=== PATIENT | male | born 1945 | race Caucasian/White ===

== ENCOUNTER 2016-11-26 17:28 | Emergency (ER) | payer MEDICARE, OTHER ==
[2016-11-26 18:08] VITALS: TEMP 98.4; O2SAT 97
[2016-11-26] MEDS ORDERED: SODIUM CHLORIDE 0.9% 1000 ML SOL IV ONE (18:24)
[2016-11-26 18:49] LABS: POTASSIUM 4.1 mMol/L (3.5-5.1)
[2016-11-26] MEDS ORDERED: SODIUM CHLORIDE 0.9% FLUSH 10 ML SOL IV PRN (18:51)
[2016-11-26 18:56] LABS: BASOPHILS % (AUTO) 1 % (0-3); EOSINOPHILS % (AUTO) 1 % (0-9); HEMATOCRIT 35 % (39-53); MEAN CORPUSCULAR HGB CONC 37.6 gm/dl (32.0-36.0); MEAN CORPUSCULAR VOLUME 97 fL (80-100); MONOCYTES % (AUTO) 6.3 % (0-12); NEUTROPHILS % (AUTO) 72.9 % (37-80)
[2016-11-26 19:05] LABS: NORMAL RBCS PRESENT
[2016-11-26 20:09] VITALS: RESP 22
[2016-11-26 20:10] VITALS: BP 128/76; PULSE 86
== END 2016-11-26 20:00 | disposition home or self-care (01) | DRG 641 ==
LOC: ED 17:28
DX: E86.0 Dehydration (principal); R40.2142 Coma scale, eyes open, spontaneous, at arrival to emergency department
CPT/HCPCS: 36415; 80048; 82962; 85025; 93005; 99285

== ENCOUNTER 2017-08-25 12:52 | Inpatient (IN) | payer MEDICARE, OTHER ==
[2017-08-25] MEDS: WARFARIN SODIUM 2 MG TAB PO SCH (18:06)
[2017-08-25] MEDS: NOVOLOG FLEXPEN SC SCH ×2 (18:55→21:06)
[2017-08-25] MEDS ORDERED: METOPROLOL TARTRATE 50 MG TAB PO SCH (21:00)
[2017-08-25] MEDS: ASPIRIN EC 81 MG PO SCH (21:04)
[2017-08-25] MEDS: ACETAMINOPHEN 325 MG PO PRN (21:05)
[2017-08-26] MEDS: ACETAMINOPHEN 325 MG PO PRN ×3 (02:17→18:23)
[2017-08-26] MEDS ORDERED: METFORMIN HYDROCHLORIDE 500 MG TAB PO SCH ×2 (08:00→18:00)
[2017-08-26] MEDS: NOVOLOG FLEXPEN SC SCH (08:38)
[2017-08-26] MEDS ORDERED: [UNRECOGNIZED DRUG - OTHER] PO SCH (09:00)
[2017-08-26] MEDS: OXYBUTYNIN CHLORIDE 5 MG TAB PO SCH (09:38)
[2017-08-26] MEDS: METFORMIN HYDROCHLORIDE 500 MG TAB PO SCH ×2 (09:39→18:23)
[2017-08-26] MEDS: FERROUS GLUCONATE 324 MG TABLET PO SCH (09:40)
[2017-08-26] MEDS: GLIMEPIRIDE 2 MG TAB PO SCH (09:41)
[2017-08-26] MEDS: METOPROLOL TARTRATE 25 MG TAB PO SCH ×2 (09:44→21:24)
[2017-08-26] MEDS: ROSUVASTATIN CALCIUM 10 MG TAB PO SCH (15:56)
[2017-08-26] MEDS: WARFARIN SODIUM 2 MG TAB PO SCH (18:24)
[2017-08-26] MEDS: ASCORBIC ACID/COPPER/LUTEIN/ 1 CAP CAP PO SCH (18:24)
[2017-08-26 19:51] VITALS: RESP 18
[2017-08-26] MEDS: ASPIRIN EC 81 MG PO SCH (21:24)
[2017-08-27] MEDS: ACETAMINOPHEN 325 MG PO PRN ×4 (00:41→21:19)
[2017-08-27] MEDS: OXYBUTYNIN CHLORIDE 5 MG TAB PO SCH (08:34)
[2017-08-27] MEDS: METFORMIN HYDROCHLORIDE 500 MG TAB PO SCH ×2 (08:35→18:25)
[2017-08-27] MEDS: METOPROLOL TARTRATE 25 MG TAB PO SCH ×2 (08:36→21:20)
[2017-08-27] MEDS: GLIMEPIRIDE 2 MG TAB PO SCH (08:37)
[2017-08-27] MEDS: ROSUVASTATIN CALCIUM 10 MG TAB PO SCH (08:39)
[2017-08-27] MEDS: FERROUS GLUCONATE 324 MG TABLET PO SCH (08:39)
[2017-08-27] MEDS ORDERED: LOPERAMIDE HYDROCHLORIDE 2 MG CAP PO ONE (16:00)
[2017-08-27] MEDS: WARFARIN SODIUM 3 MG TAB PO SCH (18:25)
[2017-08-27] MEDS: ASCORBIC ACID/COPPER/LUTEIN/ 1 CAP CAP PO SCH (18:26)
[2017-08-27] MEDS ORDERED: TEMAZEPAM 15MG 15 MG CAP PO PRN (19:20)
[2017-08-27] MEDS ORDERED: LORAZEPAM 0.5 MG TAB PO PRN (19:21)
[2017-08-27] MEDS: ASPIRIN EC 81 MG PO SCH (21:19)
[2017-08-28] MEDS: ACETAMINOPHEN 325 MG PO PRN ×2 (06:53→21:51)
[2017-08-28] MEDS: OXYBUTYNIN CHLORIDE 5 MG TAB PO SCH (09:28)
[2017-08-28] MEDS: ROSUVASTATIN CALCIUM 10 MG TAB PO SCH (09:29)
[2017-08-28] MEDS: GLIMEPIRIDE 2 MG TAB PO SCH (09:29)
[2017-08-28] MEDS: FERROUS GLUCONATE 324 MG TABLET PO SCH (09:30)
[2017-08-28] MEDS: METOPROLOL TARTRATE 25 MG TAB PO SCH ×2 (09:31→21:50)
[2017-08-28] MEDS: METFORMIN HYDROCHLORIDE 500 MG TAB PO SCH ×2 (09:32→19:57)
[2017-08-28] MEDS: WARFARIN SODIUM 3 MG TAB PO SCH (19:56)
[2017-08-28] MEDS: ASCORBIC ACID/COPPER/LUTEIN/ 1 CAP CAP PO SCH (19:57)
[2017-08-28] MEDS: ASPIRIN EC 81 MG PO SCH (21:49)
[2017-08-28] MEDS: DOCUSATE SODIUM 100 MG SGL PO SCH (21:49)
[2017-08-29] MEDS: GLIMEPIRIDE 2 MG TAB PO SCH (08:53)
[2017-08-29] MEDS: ROSUVASTATIN CALCIUM 10 MG TAB PO SCH (08:54)
[2017-08-29] MEDS: OXYBUTYNIN CHLORIDE 5 MG TAB PO SCH (08:54)
[2017-08-29] MEDS: FERROUS GLUCONATE 324 MG TABLET PO SCH (08:54)
[2017-08-29] MEDS: METFORMIN HYDROCHLORIDE 500 MG TAB PO SCH ×2 (08:55→18:01)
[2017-08-29] MEDS: METOPROLOL TARTRATE 25 MG TAB PO SCH ×2 (08:55→21:04)
[2017-08-29] MEDS: DOCUSATE SODIUM 100 MG SGL PO SCH ×2 (08:57→21:04)
[2017-08-29] MEDS: ACETAMINOPHEN 325 MG PO PRN ×2 (09:02→18:54)
[2017-08-29] MEDS ORDERED: WARFARIN SODIUM 6 MG TAB PO ONE (18:00)
[2017-08-29] MEDS ORDERED: WARFARIN SODIUM 6 MG TAB PO SCH (18:00)
[2017-08-29] MEDS: ASCORBIC ACID/COPPER/LUTEIN/ 1 CAP CAP PO SCH (18:01)
[2017-08-29] MEDS: ASPIRIN EC 81 MG PO SCH (21:04)
[2017-08-30 07:47] LABS: BASOPHILS % (AUTO) 1 % (0-3); EOSINOPHILS % (AUTO) 1 % (0-9); HEMATOCRIT 24 % (39-53); MEAN CORPUSCULAR HGB CONC 33.7 gm/dl (32.0-36.0); MONOCYTES % (AUTO) 6.1 % (0-12); NEUTROPHILS % (AUTO) 78.7 % (37-80)
[2017-08-30 07:54] LABS: MEAN CORPUSCULAR VOLUME 100 fL (80-100)
[2017-08-30 08:30] VITALS: BP 150/80; PULSE 77; TEMP 98.1; O2SAT 96
[2017-08-30] MEDS: ACETAMINOPHEN 325 MG PO PRN (08:32)
[2017-08-30] MEDS: METOPROLOL TARTRATE 25 MG TAB PO SCH (08:33)
[2017-08-30] MEDS: METFORMIN HYDROCHLORIDE 500 MG TAB PO SCH (08:33)
[2017-08-30] MEDS: ROSUVASTATIN CALCIUM 10 MG TAB PO SCH (08:34)
[2017-08-30] MEDS: DOCUSATE SODIUM 100 MG SGL PO SCH (08:34)
[2017-08-30] MEDS: GLIMEPIRIDE 2 MG TAB PO SCH (08:34)
[2017-08-30] MEDS: OXYBUTYNIN CHLORIDE 5 MG TAB PO SCH (08:35)
[2017-08-30] MEDS: FERROUS GLUCONATE 324 MG TABLET PO SCH (08:36)
[2017-08-30] MEDS ORDERED: WARFARIN SODIUM 3 MG TAB PO SCH (18:00)
[2017-08-30] MEDS ORDERED: WARFARIN SODIUM 3 MG TAB PO ONE (18:00)
== END 2017-08-30 11:15 | disposition home or self-care (01) | DRG 950 ==
LOC: ACUTE CARE 15:36
PROVIDERS: ADMIT Family Medicine; ATTEND Family Medicine
PROC: F01ZDFZ Gait and/or Balance Assessment using Assistive, Adaptive, Supportive or Protective Equipment (ICD-10-PCS; principal; 2017-08-26)
PROC: F01ZBZZ Bed Mobility Assessment (ICD-10-PCS; 2017-08-26)
PROC: F01ZCZZ Transfer Assessment (ICD-10-PCS; 2017-08-26)
PROC: F02Z1ZZ Dressing Assessment (ICD-10-PCS; 2017-08-29)
PROC: F02Z0ZZ Bathing/Showering Assessment (ICD-10-PCS; 2017-08-29)
PROC: F02Z3ZZ Grooming/Personal Hygiene Assessment (ICD-10-PCS; 2017-08-29)
DX: Z48.89 Encounter for other specified surgical aftercare (principal); D50.0 Iron deficiency anemia secondary to blood loss (chronic); E11.9 Type 2 diabetes mellitus without complications; Z79.01 Long term (current) use of anticoagulants; Z79.4 Long term (current) use of insulin; Z95.2 Presence of prosthetic heart valve
CPT/HCPCS: 82962; 85018; 85025; 85610; A4450; A6402; A9270-GY; J1815

== ENCOUNTER 2018-06-27 19:09 | Emergency (ER) | payer MEDICARE, OTHER ==
[2018-06-27] MEDS ORDERED: NITROGLYCERIN 0.4 MG TAB SL ONE (19:16)
[2018-06-27] MEDS: NITROGLYCERIN 0.4 MG TAB SL PRN ×2 (19:16→19:24)
[2018-06-27] MEDS ORDERED: ASPIRIN 81 MG CHEWABLE CTB ONE (19:17)
[2018-06-27 19:25] VITALS: TEMP 97.8
[2018-06-27] MEDS ORDERED: ASPIRIN 81 MG CHEWABLE CTB PO STA (19:28)
[2018-06-27] MEDS ORDERED: SODIUM CHLORIDE 0.9% FLUSH 10 ML SOL IV PRN (19:28)
[2018-06-27] MEDS ORDERED: HYDROMORPHONE HCL 2 MG/ML SOL IV ONE (19:31)
[2018-06-27] MEDS ORDERED: HYDROMORPHONE 1 MG/ML SYRINGE ONE (19:33)
[2018-06-27 19:40] LABS: INR 1.02 (0.86-1.12)
[2018-06-27 19:44] LABS: BLOOD UREA NITROGEN 23 mg/dl (7-18); CALCIUM 9.9 mg/dl (8.5-10.1); CHLORIDE 100 mMol/L (98-107); CREATININE 0.78 mg/dl (0.80-1.30); GLUCOSE 131 mg/dl (74-106); POTASSIUM 3.9 mMol/L (3.5-5.1); SODIUM 137 mMol/L (136-145); TROP I < 0.017 ng/ml (0.000-0.056)
[2018-06-27 19:45] LABS: BASOPHILS % (AUTO) 1 % (0-3); EOSINOPHILS % (AUTO) 1 % (0-9); HEMATOCRIT 43 % (39-53); HEMOGLOBIN 14.2 gm/dl (13.5-17.7); LYMPHOCYTES % (AUTO) 30.7 % (10-50); MEAN CORPUSCULAR HEMOGLOBIN 33.8 pg (27.0-32.0); MEAN CORPUSCULAR HGB CONC 32.7 gm/dl (32.0-36.0); MONOCYTES % (AUTO) 8.2 % (0-12); NEUTROPHILS % (AUTO) 59.5 % (37-80)
[2018-06-27 19:46] LABS: MEAN CORPUSCULAR VOLUME 104 fL (80-100)
[2018-06-27] MEDS ORDERED: SODIUM CHLORIDE 0.9% 1000ML 1,000 ML IV SCH (20:15)
[2018-06-27] MEDS ORDERED: CYCLOBENZAPRINE 10 MG TAB ONE (20:49)
[2018-06-27] MEDS ORDERED: CYCLOBENZAPRINE HYDROCHLORID 5 MG TAB PO SCH (21:00)
[2018-06-27 21:19] VITALS: BP 137/83; PULSE 77; RESP 22; O2SAT 98
== END 2018-06-27 21:10 | disposition home or self-care (01) | DRG 552 ==
LOC: ED 19:09
DX: S23.3XXA Sprain of ligaments of thoracic spine, initial encounter (principal); E11.9 Type 2 diabetes mellitus without complications; I10 Essential (primary) hypertension
CPT/HCPCS: 71275; 80048; 84484; 85025; 85610; 93005; 96365; 96374; 99284; 99285; Q9967; A9270-GY; J1170

== ENCOUNTER 2019-01-16 12:43 | Outpatient (CLI) | payer MEDICARE, OTHER | END 2019-01-16 12:44 | disposition home or self-care (01) | LOC: CONVCARE 12:43 ==